=== PATIENT | female | born 1965 | race Caucasian/White ===

== ENCOUNTER 2024-06-25 18:40 | Emergency (ER) | payer BC, OTHER ==
[2024-06-25 19:37] VITALS: RESP 18; BMI 35.3
[2024-06-25] MEDS ORDERED: ACETAMINOPHEN 325 MG TABLET (FP) ONE (19:51)
[2024-06-25] MEDS ORDERED: LOSARTAN POTASSIUM 50 MG TABLET ONE (19:51)
[2024-06-25] MEDS ORDERED: LORazepam 0.5 MG TABLET ONE (19:51)
[2024-06-25] MEDS: LOSARTAN POTASSIUM 50 MG TABLET PO ONE (19:55)
[2024-06-25] MEDS: ACETAMINOPHEN 325 MG TABLET (FP) PO ONE (19:55)
[2024-06-25] MEDS: LORazepam 2 MG TABLET PO ONE (19:55)
[2024-06-25 20:47] VITALS: BP 192/96; PULSE 69; TEMP 98.4
== END 2024-06-25 21:04 | disposition home or self-care (01) ==
LOC: FER 18:40
DX: I10 Essential (primary) hypertension (principal); R51.9 Headache, unspecified
CPT/HCPCS: 71046-TC-FY; 93005; 99284-25